=== PATIENT | female | born 2000 | race Caucasian/White ===

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

== ENCOUNTER 2021-06-11 17:47 | Emergency (ER) | payer MEDICAID ==
[~2021-06-11] VITALS: Ht 160 cm; Wt 49.9 kg
[~2021-06-11 17:47] MED LIST: SULF1TAB38 PO
[2021-06-11 17:55] VITALS: BP 112/67
[2021-06-11] MEDS ORDERED: DOXYCYCLINE 100 MG (VIBRAMYCIN) TABLET PO SCH (18:30)
[2021-06-11] MEDS ORDERED: DOXY100T2 PO (18:35)
--- NOTE | 2021-06-11 18:35 | ED Integumentary General ---
General Chief Complaint: Bite-Animal/Human/Insect Stated Complaint: POSSIBLE SPIDER BITE, POSSIBLE STAPH Source: patient Exam Limitations: no limitations History of Present Illness Date Seen by Provider: Jun 11, 2021 Time Seen by Provider: 18:32 Initial Comments Some pain to the lateral left hip. She noticed this about a week ago. She thought it may be a spider bite but then she googled some pictures of staff and believes it may be that. No fevers or chills. Timing/Duration: constant Severity: moderate Possible Cause: no cause identified Associated Symptoms: denies symptoms Allergies and Home Medications Allergies Coded Allergies: No Known Drug Allergies (Unverified , 07/14/20) Home Medications Doxycycline Hyclate 100 Mg Tablet, 100 MG PO BID Prescribed by: MICHAEL RUTHERFORD on 06/11/21 183 Sulfamethoxazole/Trimethoprim 1 Each Tablet, 1 EACH PO BID Prescribed by: COLLIN BROCK on 07/14/20 1854 Patient Home Medication List Home Medication List Reviewed: Yes Review of Systems Review of Systems Constitutional: see HPI; No chills, No fever EENTM: see HPI Respiratory: no symptoms reported Cardiovascular: no symptoms reported Genitourinary: no symptoms reported Musculoskeletal: no symptoms reported Skin: no symptoms reported Psychiatric/Neurological: No Symptoms Reported Past Cnncqyd-Odicrj-Ctqopt Hx Seasonal Allergies Seasonal Allergies: No Past Medical History Surgeries: No Respiratory: No Cardiac: No Neurological: No Genitourinary: No Gastrointestinal: No Musculoskeletal: No Endocrine: No HEENT: No Cancer: No Psychosocial: No Integumentary: No Blood Disorders: No Physical Exam Vital Signs Capillary Refill : General Appearance: WD/WN, no apparent distress HEENT: PERRL/EOMI, normal ENT inspection Respiratory: normal breath sounds, no respiratory distress, no accessory muscle use Extremities: normal range of motion, non-tender Neurologic/Psychiatric: alert, normal mood/affect, oriented x 3 Skin: normal color, warm/dry Skin Problem Location: lower extremities Skin Problem Character: abscess, other (To the lateral aspect of the left hip superior and anterior to the greater trochanter is a papule. There is some induration that extends superior and inferior to this about 2 cm and extends medially by about 6 to 7 mm. On bedside ultrasound there is a small amount of fluid collection seen here consistent with abscess. There is no necrosis. I did offer her and recommend incision and drainage of this but she declines, she would like to start antibiotics and return for any worsening.) Progress/Results/Core Measures Results/Orders My Orders Orders - MICHAEL RUTHERFORD APRN Doxycycline Hyclate Tablet (Vibramycin T (06/11/21 18:30) Rx-Hydrocodone/Apap 5-325 Mg (Rx-Vicodin (06/11/21 18:30) Departure Impression Primary Impression: Abscess Disposition: 01 HOME, SELF-CARE Condition: Stable Departure-Patient Inst. Decision time for Depature: 18:34 Referrals: NO,LOCAL PHYSICIAN (PCP/Family) Primary Care Physician Patient Instructions: Skin Abscess Add. Discharge Instructions: 1. Warm compresses to the area. Antibiotics and steroids as directed. Return to ER for any fevers, worsening redness worsening pain. All discharge instructions reviewed with patient and/or family. Voiced understanding. Scripts Doxycycline Hyclate (Doxycycline Hyclate) 100 Mg Tablet 100 MG PO BID, #20 TAB 0 Refills Prov: MICHAEL RUTHERFORD APRN 06/11/21 MICHAEL RUTHERFORD APRN Jun 11, 2021 18:35
== END 2021-06-11 18:52 | disposition home or self-care (01) ==
LOC: EDUNIT# 17:47 → ER 17:50
DX: L02.416 Cutaneous abscess of left lower limb (principal)
CPT/HCPCS: 99283

== ENCOUNTER 2022-10-21 20:07 | Emergency (ER) | payer MEDICAID ==
[~2022-10-21] VITALS: Ht 160 cm; Wt 54.4 kg
[~2022-10-21 20:07] MED LIST changes: +DOXY100T2 PO
[2022-10-21 20:10] VITALS: BP 131/96
[2022-10-21] MEDS ORDERED: AMOXICILLIN 500 MG (POLYMOX) CAP PO STA (20:20)
[2022-10-21] MEDS ORDERED: AMOX500C2 PO (20:22)
--- NOTE | 2022-10-21 20:23 | ED EENT ---
History of Present Illness General Chief Complaint: Dental Problems/Pain Stated Complaint: LEFT SIDE OF FACE SWELLING Nursing Triage Note: PT AMB TO RM 6 W C/O LEFT SIDE FACIAL SWELLING D/T TOOTH ISSUE SX YESTERDAY. PT A&OX4. (GINGER ROBERTO) History of Present Illness Date Seen by Provider: Oct 21, 2022 Time Seen by Provider: 20:10 Initial Comments 22-year-old female presents for left upper dental pain that is been present since yesterday. Patient denies any chronic dental problems. She cannot report the last time she has been seen by the dentist. She denies any discomfort when eating or drinking. She has not taken any fwul-qay-ggcdtae pain medicine for her symptoms. She does not have a local dentist. Timing/Duration: yesterday Location: mouth Prearrival Treatment: no prearrival treatment Associated Symptoms: No cough, No drooling; facial pain/swelling (Right); No fever, No malaise, No poor fluid intake, No poor solids intake; tooth pain (GINGER ROBERTO) Allergies and Home Medications Allergies Coded Allergies: No Known Drug Allergies (Unverified , 07/14/20) Patient Home Medication List Home Medication List Reviewed: Yes (GINGER ROBERTO) Amoxicillin (Amoxicillin) 500 Mg Capsule, 500 MG PO TID Prescribed by: GINGER ROBERTO on 10/21/222021 Doxycycline Hyclate (Doxycycline Hyclate) 100 Mg Tablet, 100 MG PO BID Prescribed by: MICHAEL RUTHERFORD on 06/11/211834 Sulfamethoxazole/Trimethoprim (Bactrim Ds Tablet) 1 Each Tablet, 1 EACH PO BID Prescribed by: COLLIN BROCK on 07/14/20 185 Review of Systems Review of Systems Constitutional: no symptoms reported, see HPI Mouth: see HPI; denies loose teeth; pain (Right upper) (GINGER ROBERTO) All Other Systems Reviewed Negative Unless Noted: Yes (GINGER ROBERTO) Past Bhpuasv-Mcnuva-Crezqr Hx Patient Social History Tobacco Use?: Yes Tobacco type used: Cigarettes Smoking Status: Current Everyday Smoker Use of E-Cig and/or Vaping dev: Yes E-Cig or Vaping type used: Nicotine Use of E-Cig and/or Vaping Tima: Current Someday User Substance use?: Yes Substance type: Methamphetamine, Marijuana Alcohol Use?: Yes Alcohol Frequency: Couple times a week (GINGER ROBERTO) Seasonal Allergies Seasonal Allergies: No (GINGER ROBERTO) Past Medical History Surgeries: No Respiratory: No Cardiac: No Neurological: No Genitourinary: No Gastrointestinal: No Musculoskeletal: No Endocrine: No HEENT: No Cancer: No Psychosocial: No Integumentary: No Blood Disorders: No (GINGER ROBERTO) Family Medical History Reviewed Nursing Family Hx (GINGER ROBERTO) Physical Exam Vital Signs Vital Signs - First Documented 10/21/22 20:10 Temp 36.0 Pulse 119 Resp 20 B/P (MAP) 131/96 (108) Pulse Ox 99 O2 Delivery Room Air (YESSICA,SOUTH K DO) Height, Weight, BMI Height: '" Weight: lbs. oz. kg; 21.00 BMI Method: General Appearance: WD/WN, no apparent distress Ears: bilateral ear auricle normal, bilateral ear canal normal, bilateral ear TM normal Nose: normal inspection; No active bleeding, No discharge Mouth/Throat: pharynx normal, dental tenderness (left upper molar); No excessive drooling; maxillary swelling (trace); No pharynx tenderness Neck: non-tender, full range of motion, supple, normal inspection; No lymphadenopathy (R), No lymphadenopathy (L) Cardiovascular: normal peripheral pulses, regular rate, rhythm Respiratory: chest non-tender, lungs clear, normal breath sounds Neurologic/Psychiatric: no motor/sensory deficits, alert, normal mood/affect, oriented x 3 Skin: normal color, warm/dry (GINGER ROBERTO) Progress/Results/Core Measures Results/Orders Vital Signs/I&O 10/21/22 20:10 Temp 36.0 Pulse 119 Resp 20 B/P (MAP) 131/96 (108) Pulse Ox 99 O2 Delivery Room Air (YESSICA,SOUTH K DO) Blood Pressure Mean: 108 Departure Impression Primary Impression: Dental abscess Additional Impression: Dental caries Disposition: 01 HOME, SELF-CARE Condition: Improved Departure-Patient Inst. Decision time for Depature: 20:20 (GINGER ROBERTO) Referrals: [facility] [place] NO,LOCAL PHYSICIAN (PCP) Primary Care Physician Patient Instructions: Tooth Abscess (DC) Add. Discharge Instructions: Take antibiotic as prescribed. Alternate between ibuprofen 600 mg and Tylenol 650 mg every 4 hours for pain. Soft diet as tolerated. Contact [facility] dental for an appointment. You may consider going to [facility] walk-in for referral to the dental clinic. You can use dijc-clq-lhfymar tooth ointments to help with the pain such as Ambsesol. Return to the emergency department for new, urgent healthcare problems. All discharge instructions reviewed with patient and/or family. Voiced understanding. Scripts Amoxicillin (Amoxicillin) 500 Mg Capsule 500 MG PO TID, #21 CAP 0 Refills Prov: GINGER ROBERTO 10/21/22 ATTENDING PHYSICIAN NOTE: I WAS PHYSICALLY PRESENT ER PHYSICIAN, BUT I WAS NOT INVOLVED IN ANY DECISION MAKING OR ANY CARE OF THIS PATIENT, AND I AM NOT COLLABORATING PHYSICIAN. (SOUTH JUAN DO) GINGER ROBERTO Oct 21, 2022 20:23 SOUTH JUAN DO Oct 22, 2022 06:33
== END 2022-10-21 20:28 | disposition home or self-care (01) ==
LOC: EDUNIT# 20:07 → ER 20:08
DX: K04.7 Periapical abscess without sinus (principal); K02.9 Dental caries, unspecified; F17.210 Nicotine dependence, cigarettes, uncomplicated
CPT/HCPCS: 99283

== ENCOUNTER 2022-12-03 11:04 | Emergency (ER) | payer MEDICAID ==
[~2022-12-03] VITALS: Ht 160 cm; Wt 57.0 kg
[~2022-12-03 11:04] MED LIST changes: +AMOX500C2 PO
[2022-12-03 11:40] VITALS: BP 137/103
--- NOTE | 2022-12-03 11:54 | ED EENT ---
History of Present Illness General Stated Complaint: ORAL ISSUES Source: patient Exam Limitations: no limitations History of Present Illness Date Seen by Provider: Dec 03, 2022 Time Seen by Provider: 11:40 Initial Comments Patient is a 22-year-old female who presents to the emergency department for evaluation of "my throat not looking right". She is unable to provide a definitive timeline for when this began. She states she is "sick of worrying about it". She denies any pain, fever, difficulty swallowing, decreased range of motion of the neck, inability to fully open the mouth, or change in voice. States she is eating and drinking like normal. Not taking any medications for the symptoms currently. Allergies and Home Medications Allergies Coded Allergies: No Known Drug Allergies (Unverified , 07/14/20) Patient Home Medication List Home Medication List Reviewed: Yes Amoxicillin (Amoxicillin) 500 Mg Capsule, 500 MG PO TID Prescribed by: GINGER ROBERTO on 10/21/222021 Doxycycline Hyclate (Doxycycline Hyclate) 100 Mg Tablet, 100 MG PO BID Prescribed by: MICHAEL RUTHERFORD on 06/11/21 183 Sulfamethoxazole/Trimethoprim (Bactrim Ds Tablet) 1 Each Tablet, 1 EACH PO BID Prescribed by: COLLIN BROCK on 07/14/20 185 Review of Systems Review of Systems Constitutional: no symptoms reported Eyes: No Symptoms Reported Ears: No Symptoms Reported Nose: no symptoms reported Mouth: no symptoms reported Throat: see HPI Respiratory: no symptoms reported Cardiovascular: no symptoms reported Gastrointestinal: no symptoms reported Musculoskeletal: no symptoms reported Skin: no symptoms reported Neurological: No Symptoms Reported Hematologic/Lymphatic: No Symptoms Reported Immunological/Allergic: no symptoms reported Past Ocsiuip-Lzegex-Mnqbsu Hx Seasonal Allergies Seasonal Allergies: No Past Medical History Surgeries: No Respiratory: No Cardiac: No Neurological: No Genitourinary: No Gastrointestinal: No Musculoskeletal: No Endocrine: No HEENT: No Cancer: No Psychosocial: No Integumentary: No Blood Disorders: No Physical Exam Height, Weight, BMI Height: '" Weight: lbs. oz. kg; 21.00 BMI Method: General Appearance: WD/WN, no apparent distress Mouth/Throat: normal mouth inspection, pharynx normal Neck: non-tender, full range of motion, supple, normal inspection Cardiovascular: regular rate, rhythm Respiratory: chest non-tender, lungs clear, normal breath sounds, no respiratory distress Gastrointestinal: normal bowel sounds, non tender, soft Neurologic/Psychiatric: no motor/sensory deficits, alert, normal mood/affect, oriented x 3 Skin: normal color, warm/dry Progress/Results/Core Measures Progress Progress Note : Progress Note Patient is nontoxic and well-hydrated on exam. Vital signs are reassuring. Oropharyngeal exam is unremarkable. No evidence of peritonsillar abscess or d eep space infection of the neck. No cervical adenopathy appreciated. Patient has full range of motion of the neck. No muffled voice noted. No trismus noted. Soft palate elevates as expected. There is no indication of acute pathology on my visual exam. Patient endorses no other symptoms concerning for any emergent oropharyngeal pathology. I reassured her that nothing was obv iously abnormal. I encouraged her to follow-up with her PCP if the symptoms are worries persisted. Return precautions for urgent symptomology discussed. Patient verbalized understanding. Departure Impression Primary Impression: Anxiety about health Additional Impression: Feared condition not demonstrated Disposition: 01 HOME, SELF-CARE Condition: Stable Departure-Patient Inst. Decision time for Depature: 11:50 Referrals: [facility] [place],LOCAL PHYSICIAN (PCP) Primary Care Physician Patient Instructions: Sore Throat in Adults Add. Discharge Instructions: There are no concerning abnormalities noted on your exam today. It is important you follow-up with or establish care with a PCP for follow-up. If you develop any difficulty swallowing, difficulty breathing, inability to fully open your mouth, inability to turn your head, or significant pain in your throat please return for further evaluation. JED RINCON APRN Dec 03, 2022 11:54
== END 2022-12-03 12:01 | disposition home or self-care (01) ==
LOC: EDUNIT# 11:04 → ER 11:06
DX: F41.8 Other specified anxiety disorders (principal); Z71.1 Person with feared health complaint in whom no diagnosis is made
CPT/HCPCS: 99281